=== PATIENT | female | born 1990 | race Caucasian/White ===

== ENCOUNTER 2017-06-04 18:37 | Emergency (ER) | payer OTHER ==
[2017-06-04 18:47] VITALS: BP 145/71
--- NOTE | 2017-06-04 19:07 | UC ---
FLU HPI - History of Current Complaint Chief Complaint: UCGeneralIllness Stated Complaint: chest congestion, and sore throat Time Seen by Provider: 06/04/17 18:54 Hx Obtained From: Patient Hx Last Menstrual Period: now ?: No Onset/Duration: Sudden Onset - started Tuesday before bed with extreme fatigue, fever, cough. has gotten no better Severity Currently: Moderate Severity Initially: Severe Associated Signs & Symptoms: Positive: Fever, Cough - Allergy/Home Medications Allergies/Adverse Reactions: Allergies Allergy/AdvReac Type Severity Reaction Status Date / Time Latex Allergy Rash Verified 03/31/17 15:59 PMH/Surg Hx/FS Hx/Imm Hx Previously Healthy: Yes - Surgical History Surgical History: Yes Surgery Procedure, Year, and Place: right knee. WISDOM TEETH. TONSILS - Family History Known Family History: Positive: Hypertension, Other - POLYCYSTIC KIDNEYS - Social History Occupation: Employed Full-time Lives: Alone Alcohol Use: Weekly Alcohol Amount: 1-2 times a week Substance Use Type: None Smoking Status (MU): Never Smoked Tobacco - Immunization History Most Recent Influenza Vaccination: unknown Review of Systems Constitutional: Fever, Fatigue Skin: Negative Eyes: Negative ENT: Sinus Congestion Respiratory: Cough Cardiovascular: Negative Neurological: Negative Psychological: Negative All Other Systems Reviewed And Are Negative: Yes Physical Exam Triage Information Reviewed: Yes Appearance: Well-Appearing, No Pain Distress, Well-Nourished Vital Signs: Initial Vital Signs Temp 97.5 F 06/04/17 18:41 Pulse 90 06/04/17 18:41 Resp 18 06/04/17 18:41 BP 145/71 06/04/17 18:41 Pulse Ox 100 06/04/17 18:41 Vital Signs Reviewed: Yes ENT: Positive: Nasal congestion Neck exam: Normal Respiratory: Positive: Rhonchi. Negative: No respiratory distress Cardiovascular Exam: Normal Cardiovascular: Positive: RRR Neurological Exam: Normal Psychological Exam: Normal Skin Exam: Normal Flu Course/Dx - Differential Dx/Diagnosis Differential Diagnosis/HQI/PQRI: Bronchitis, Influenza, Upper Respiratory Infection Provider Diagnoses: Influenza A Discharge - Discharge Plan Condition: Stable Disposition: HOME Prescriptions: Oseltamivir CAP* [Tamiflu CAP*] 75 mg PO BID #10 cap Patient Education Materials: Influenza (ED) Referrals: Magaly Lombardo MD [Primary Care Provider] - 2 Days (if no better ) Additional Instructions: drink plenty of fluids take Tamiflu as prescribed ok to use over the counter cold medication for symptom relief
[2017-06-04] MEDS ORDERED: Oseltamivir CAP* 75 MG PO ONE (19:35)
== END 2017-06-04 19:53 | disposition home or self-care (01) ==
LOC: UCEAST 18:37
DX: J10.1 Influenza due to other identified influenza virus with other respiratory manifestations (principal); Z91.040 Latex allergy status
CPT/HCPCS: 87502; 99212; A9270-GY; G0463